=== PATIENT | female | born 1955 | race Caucasian/White ===

== ENCOUNTER → 2019-08-10 09:35 | Outpatient (BNVA) | payer BC, SELFPAY | PROVIDERS: Visit Provider Obstetrics & Gynecology | DX: I10 Essential (primary) hypertension (principal) | CPT/HCPCS: 80048 ==

== ENCOUNTER 2019-08-14 06:34 | Day surgery (SDC) | payer BC, SELFPAY ==
[2019-08-10 14:04] VITALS: BMI 34.9
[2019-08-14 06:51] VITALS: BP 174/79; PULSE 72; RESP 18; TEMP 36.3; O2SAT 98
[2019-08-14 07:01] LABS: Glucose Point of Care 170 mg/dL (70-110)
[2019-08-14] MEDS: sodium chloride 0.9% 1,000 ML 30 ML IV (07:01)
[2019-08-14] MEDS: ketorolac 30 mg/mL INJ IVP (07:01)
--- NOTE | 2019-08-14 07:02 | ANES.PREANE2 ---
Pre-Anesthetic Assessment Pre-Anesthetic Assessment: Height/Weight: Height 1.65 m Weight 95.254 kg Temp Pulse Resp BP Pulse Ox 97.3 F L 72 18 174/79 98 08/14/19 06:51 08/14/19 06:51 08/14/19 06:51 08/14/19 06:51 08/14/19 06:51 Preop Diagnosis: Postmenopausal bleeding, Endometrial polyp Proposed Procedure: Operation Date: 08/14/19 08:00 Proposed Procedures p Hysteroscopy with polypectomy Code: 35580/23920/N95.0/N84.0(Not Applicable) - Govind Sheffield MD s Dilation And Curettage (D&C)(Not Applicable) - Govind Sheffield MD Familial anesthetic complications: PONV, excess sleepiness afterwards Was Beta Poornima taken within 24 hours: N/A Last intake: Intake Last Liquid Date 08/13/19 Last Liquid Time 22:00 Last Solid Date 08/13/19 Last Solid Time 22:00 Social: Social History: No alcohol and No tobacco Exam: Pre-Anes Outpt Exam: alert, oriented x 3, clear to auscultation bilaterally and regular rate & rhythm Airway: Cervical ROM: WNL MP: 1 Additional comments: edentulous Pulmonary: Pulmonary: None reported CV/HEM: CV/HEM: CAD (stents - last one 13 years ago; last took plavix on ) and HTN : : None reported Hepatic: Hepatic: None reported GI: GI: None reported Metabolic: Metabolic: DM, Morbid obesity and Thyroid Musc/skel: Musc/skel: Fibromyalgia Neuropsych: Neuropsych: None reported Anesthetic Plan: ASA status: 2 Anesthesia: MAC Risk of > 500 ml blood loss (7ml/kg in children): No Meds/Allergies Current Medications: Current Medications Generic Name Dose Route Start Last Admin Trade Name Freq PRN Reason Stop Dose Admin Sodium Chloride 1,000 mls @ 30 ml s/hr 08/14/19 06:00 08/14/19 07:01 Sodium Chloride 0.9% IV 08/15/19 05:59 30 mls/hr .Q24H TEX Administration PFSH Anesthesia PFSH: Medical History Coronary artery disease Reports having 2 heart stents present. History of eye injury Hyperlipidemia Hypertension Post-surgical hypothyroidism Reports having thyroidectomy in 2014. 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 Type 2 diabetes mellitus Surgical History H/O breast biopsy (~1979) H/O section 1979 and 1986. H/O tubal ligation (~1986) History of arthroscopy of right shoulder (~2001) History of carpal tunnel release of both wrists Left - 2003. Right - 2004 History of cholecystectomy (~2004) History of heart artery stent (~2006) Dr. Barakat at [facility] in [facility] #2 History of thyroidectomy (~2014) In [facility] at [facility] History of tonsillectomy and adenoidectomy Family History Brother Hypertension Sister Hypertension Stroke Diabetes Sister No problems noted. Mother Heart disease Uterine cancer Grandmother Diabetes maternal Social History Smoking and tobacco status: never smoked Alcohol intake: current Alcohol intake frequency: holidays/special occasions only Alcohol type: hard liquor Substance/Drug Use: never Data Anesthesia Other Labs: Laboratory Results - last 48 hr 08/14/19 06:59 POC Glucose 170 Cardiac Studies: No Data to Display
--- NOTE | 2019-08-14 07:24 | P.HPUD_ITS ---
Surgery/Procedure H&P Update DATE OF PROCEDURE: August 14, 2019 DATE H&P PERFORMED: 08/10/19 H&P UPDATE INFORMATION: I have reviewed H&P completed within last 30 days, I have examined patient prior to procedure, No changes to prior documentation and H&P is in [facility] [place] date indicated PREOP DIAGNOSIS: Postmenopausal bleeding, Endometrial polyp PLANNED PROCEDURE: Operation Date: 08/14/19 08:00 Proposed Procedures p Hysteroscopy with polypectomy Code: 99206/48324/N95.0/N84.0(Not Applicable) - Govind Sheffield MD s Dilation And Curettage (D&C)(Not Applicable) - Govind Sheffield MD
--- NOTE | 2019-08-14 09:10 | P.OP_ITS ---
Operative Report Date of procedure: August 14, 2019 Pre-op Diagnosis: Postmenopausal bleeding, Endometrial polyp Post-op Diagnosis: Endometrial polyp, Postmenopausal bleeding Procedure Done: Hysteroscopy with polypectomy with MyoSure, Paracervical block Specimens removed/disposition: Endometrial polyps and endometrial lining Surgeon: Govind Sheffield Anesthesia: MAC and Other ( Paracervical block with 2% lidocaine with epinephrine) Estimated blood loss (mL): 5 IV fluids (mL): 500 Complications: None Findings: Small, approximately 5 mm in diameter, sessile polyp at the posterior fundal portion of the endometrial cavity. Within the anterior lower uterine segment was an approximately 1-1/2 cm diameter sessile polyp. Rest of the endometrial cavity was normal in appearance with a pale thin appearing lining. Both tubal ostia were visualized. Brief History: Patient is a 64-year-old white female 2, Para 2 who is postmenopausal. She presented to the office on 07/12/2019 with a complaint of bleeding. She reported having 2 dark spots in her underwear and March of this year. She denied any pain associated with it. She had a hysteroscopy performed in the office which revealed a sessile polyp along the posterior endometrial wall. Because of the polyp, recommendations were to proceed to the OR for removal. S he is presenting for surgery at this time. Procedure: The patient was taken to the operating room where IV sedation was started. She was prepped and draped in the usual sterile fashion in the dorsal supine position with legs in Vignesh style stirrups. Sequential compression boots had been placed prior to starting the case. Patient had voided just before coming to the operating room. Exam under anesthesia was performed and the patient was noted to have first- degree uterine prolapse with first to second-degree cystocele under anesthesia. A weighted speculum was placed in the vagina and the cervix was grasped with a single-tooth tenaculum. A paracervical block was performed with a total of 12 mL of 2% lidocaine with epinephrine used. The cervix was serially dilated until a operative hysteroscope could be passed. Crystalloid solution was used as a distention media. The endometrial cavity was inspected. At the posterior fundal portion of the endometrial cavity was an approximately 5 mm diameter sessile polyp. Along the anterior lower uterine segment was an approximately 1-1/2 cm sessile polyp. The rest of the endometrial cavity was pale, with thin appearing lining. Both tubal ostia were identified. Sharp curettage was performed with attempted removal of the polyps. This was unsuccessful. As result, decision was made to use the MyoSure device. Using the MyoSure device, the polyps were able to be completely removed. The tenaculum was removed and there was minimal bleeding from the tenaculum site. Patient tolerated the procedure well. Sponge and needle counts were correct. DRAINS: None POSTOPERATIVE STATUS: The patient was transferred to the recovery room in satisfactory condition DISPOSITION: Discharge to home when criteria was met. FOLLOWUP APPOINTMENT: Followup appointment had been scheduled on 08/30/2019 in my office. MEDICATIONS: She is to resume her usual home medications.
[2019-08-14 09:14] VITALS: BP 113/51; PULSE 81; RESP 18; TEMP 36.7; O2SAT 95
[2019-08-14 09:43] VITALS: BP 120/55; PULSE 73; RESP 18; O2SAT 97
== END 2019-08-14 09:47 | disposition home or self-care (01) ==
PROVIDERS: PCP Family Medicine; Visit Provider Obstetrics & Gynecology
PROC: (CPT 58120; 2019-08-14 08:00)
PROC: 0UDB8ZZ Extraction of Endometrium, Via Natural or Artificial Opening Endoscopic (ICD-10-PCS; CPT 58558; 2019-08-14 08:00)
DX: N95.0 Postmenopausal bleeding (principal); N84.0 Polyp of corpus uteri; I25.10 Atherosclerotic heart disease of native coronary artery without angina pectoris; Z95.5 Presence of coronary angioplasty implant and graft; I10 Essential (primary) hypertension; E11.9 Type 2 diabetes mellitus without complications; E66.01 Morbid (severe) obesity due to excess calories; Z68.34 Body mass index [BMI] 34.0-34.9, adult; M79.7 Fibromyalgia; E78.5 Hyperlipidemia, unspecified
CPT/HCPCS: 58558; 12345; 36416; 82962; 88305; 96374; J1885; J2001; J2405; J2704; J3010; J7030

== ENCOUNTER 2019-09-29 01:44 | Emergency (ER) | payer BC, SELFPAY ==
--- NOTE | 2019-09-29 01:48 | CTR_ITS ---
PROCEDURE INFORMATION: Exam: CT Head Without Contrast Exam date and time: 09/29/2019 2:41 AM Age: 64 years old Clinical indication: Dizziness TECHNIQUE: Imaging protocol: Computed tomography of the head without contrast. Radiation optimization: All CT scans at this facility use at least one of these dose optimization techniques: automated exposure control; mA and/or kV adjustment per patient size (includes targeted exams where dose is matched to clinical indication); or iterative reconstruction. COMPARISON: No relevant prior studies available. RADIATION DOSE METRICS: Total DLP (mGy-cm): 853.24 FINDINGS: Brain: No hemorrhage. No significant white matter disease. No edema. Ventricles: No hydrocephalus. Bones/joints: No acute fracture. Sinuses: Unremarkable. No acute sinusitis. Mastoid air cells: No significant mastoid effusion. Orbits: Postprocedural changes affect the left globe. Soft tissues: Unremarkable. CT/CT head wo con* [id number] IMPRESSION: No acute intracranial abnormality. Radiation Dose CTDIVOL = (mGy): DLP = 853.24 (mGy-cm)
[2019-09-29 01:49] VITALS: BP 161/77; PULSE 71; RESP 18; TEMP 37.1; O2SAT 93; BMI 36.6
--- NOTE | 2019-09-29 01:49 | ECG_ITS ---
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 Measurements Intervals [place] Rate: 66 P: 52 ME: 168 QRS: -47 QRSD: 98 T: 7 QT: 388 QTc: 408 Interpretive Statements SINUS RHYTHM LOW QRS VOLTAGE IN PRECORDIAL LEADS [QRS DEFLECTION < 1.0 mV IN CHEST LEADS] LEFT ANTERIOR FASCICULAR BLOCK [QRS AXIS <= -45, QR IN I, RS IN II] POSSIBLE ANTERIOR MYOCARDIAL INFARCTION , PROBABLY OLD [30 ms Q WAVE IN V3/V4, OR R < 0.2 mV IN V4] INTERPRETATION BASED ON A DEFAULT AGE OF 40 YEARS Compared to ECG 09/21/2017 17:59:34 No significant changes Electronically Signed On 09-29-2019 13:53:17 CDT by Marian Egan M.D. [id number]
[2019-09-29] MEDS: ondansetron 2 mg/ML SDV 2 mL 8 MG IVP (02:00)
[2019-09-29 02:03] VITALS: BP 163/82; PULSE 65; RESP 18; O2SAT 95
[2019-09-29 02:05] LABS: Basophils % 0.7 %; Eosinophils # 0.2 10^3/uL (0.0-0.8); Eosinophils % 3.5 %; Hematocrit 42.6 % (37.0-47.0); Lymphocytes # 2.6 10^3/uL (0.8-4.8); Lymphocytes % 45.3 %; Mean Corpuscular HGB Conc 32.9 g/dL (30.0-36.0); Mean Corpuscular Hemoglobin 30.2 pg (28.0-34.0); Mean Corpuscular Volume 91.8 fL (81-99); Mean Platelet Volume 11.5 fL (7.4-10.4); Monocytes # 0.4 10^3/uL (0.2-0.9); Neutrophils # 2.6 10^3/uL (1.8-7.7); Neutrophils % 44.3 %; Nucleated Red Blood Cells % 0 %; Platelet Count 220 10^3/cmm (130-400); Red Blood Count 4.64 10^6/uL (4.1-5.3); Red Cell Distribution Width 13.3 % (12.1-15.1); White Blood Count 5.8 10^3/uL (4.0-10.0)
[2019-09-29 02:34] LABS: Alanine Aminotransferase 14 U/L (0-33); Albumin Level 4.1 g/dL (3.5-5.2); Alkaline Phosphatase 104 IU/L (35-105); Anion Gap 13.6 (5-19); Aspartate Amino Transferase 15 U/L (0-32); Blood Urea Nitrogen 13 mg/dL (8-23); Calcium 9.9 mg/dL (8.5-10.5); Carbon Dioxide 28 mmol/L (22-29); Chloride 101 mmol/L (98-107); Creatinine Clr Calc Pharmacy 96.2479; Globulin 3.3 g/dL (1.3-4.6); Glomerular Filtration Rate 84.5 mL/min (90-130); Glucose 136 mg/dL (65-115); Osmolality Calculated 286 mOsm/kg (285-295); Potassium 3.6 mmol/L (3.5-5.1); Sodium 139 mmol/L (136-145); Total Bilirubin 0.4 mg/dL (0.15-1.2); Total Protein 7.4 g/dL (6.6-8.7)
[2019-09-29 02:36] LABS: Troponin(5th) Baseline 10 ng/L (0-10)
[2019-09-29 03:17] VITALS: BP 144/72; PULSE 64; RESP 20; O2SAT 93
--- NOTE | 2019-09-29 03:49 | ECG_ITS ---
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 Measurements Intervals [place] Rate: 66 P: 52 CO: 168 QRS: -47 QRSD: 98 T: 7 QT: 388 QTc: 408 Interpretive Statements SINUS RHYTHM LOW QRS VOLTAGE IN PRECORDIAL LEADS [QRS DEFLECTION < 1.0 mV IN CHEST LEADS] LEFT ANTERIOR FASCICULAR BLOCK [QRS AXIS <= -45, QR IN I, RS IN II] POSSIBLE ANTERIOR MYOCARDIAL INFARCTION , PROBABLY OLD [30 ms Q WAVE IN V3/V4, OR R < 0.2 mV IN V4] INTERPRETATION BASED ON A DEFAULT AGE OF 40 YEARS Compared to ECG 09/21/2017 17:59:34 No significant changes Electronically Signed On 09-29-2019 14:03:46 CDT by Marian Egan M.D. [id number] f
--- NOTE | 2019-09-29 04:08 | CTR_ITS ---
PROCEDURE INFORMATION: Exam: CT Angiography Head With Contrast Exam date and time: 09/29/2019 4:32 AM Age: 64 years old Clinical indication: Dizziness and giddiness; Prior surgery; Surgery type: Thyroid removed; Additional info: Dizzy TECHNIQUE: Imaging protocol: Computed tomography angiography of the head with intravenous contrast. 3D rendering: MIP and/or 3D reconstructed images were created by the technologist. Radiation optimization: All CT scans at this facility use at least one of these dose optimization techniques: automated exposure control; mA and/or kV adjustment per patient size (includes targeted exams where dose is matched to clinical indication); or iterative reconstruction. Contrast material: OMNI 350; Contrast volume: 95 ml; Contrast route: INTRAVENOUS (IV); COMPARISON: CT head wo con* [id number] 2019-09-29 02:31 RADIATION DOSE METRICS: Total DLP (mGy-cm): 2425.31 FINDINGS: Anterior cerebral arteries: No occlusion or significant stenosis. No aneurysm. Right internal carotid artery: Intracranial segment is patent with no significant stenosis or occlusion. No aneurysm. Right middle cerebral artery: No occlusion or significant stenosis. No aneurysm. Right posterior cerebral artery: Patent right MEDICINE TECH. Right vertebral artery: No occlusion or significant stenosis. No aneurysm. Left internal carotid artery: Intracranial segment is patent with no significant stenosis or occlusion. No aneurysm. Left middle cerebral artery: No occlusion or significant stenosis. No aneurysm. Left posterior cerebral artery: Tiny left posterior communicating artery with a tiny infundibulum at its origin. Left vertebral artery: No occlusion or significant stenosis. No aneurysm. Basilar artery: No occlusion or significant stenosis. No aneurysm. Dural sinuses/cerebral veins: The visualized deep and superficial dural venous sinuses and cortical veins are patent. HEAD: Orbits: Left globe scleral buckle. Evidence of previous ocular surgery with intraocular lens implants. IMPRESSION: No large vessel stenosis or occlusion. PROCEDURE INFORMATION: Exam: CT Angiography Neck With Contrast Exam date and time: 09/29/2019 4:32 AM Age: 64 years old Clinical indication: Dizziness and giddiness; Prior surgery; Surgery type: Thyroid removed; Additional info: Dizzy TECHNIQUE: Imaging protocol: Computed tomography angiography of the neck with intravenous contrast. 3D rendering: MIP and/or 3D reconstructed images were created by the technologist. Radiation optimization: All CT scans at this facility use at least one of these dose optimization techniques: automated exposure control; mA and/or kV adjustment per patient size (includes targeted exams where dose is matched to clinical indication); or iterative reconstruction. Contrast material: OMNI 350; Contrast volume: 95 ml; Contrast route: INTRAVENOUS (IV); COMPARISON: CT head wo con* [id number] 2019-09-29 02:31 RADIATION DOSE METRICS: Total DLP (mGy-cm): 2425.31 FINDINGS: Right common carotid artery: No stenosis. No dissection or occlusion. Right internal carotid artery: Mild atherosclerotic plaque in the carotid bulb and proximal right internal carotid artery with less than 50% stenosis by NASCET criteria. Right external carotid artery: No occlusion or stenosis of the origin. Right vertebral artery: No stenosis. No dissection or occlusion. Left common carotid artery: Mild atherosclerotic plaque in the predominately distal left common carotid artery and the bifurcation. Left internal carotid artery: Mild atherosclerotic plaque in the proximal left internal carotid artery and carotid bulb with less than 50% stenosis by NASCET criteria. Left external carotid artery: No occlusion or stenosis of the origin. Left vertebral artery: No stenosis. No dissection or occlusion. Trachea: Evidence of previous thyroidectomy with numerous clips abutting the upper trachea. Bones/joints: No acute fracture. Soft tissues: Normal. No significant soft tissue swelling. CT/CT angio headneck* [id number] IMPRESSION: 1. Mild bilateral proximal ICA atherosclerotic disease with less than 50% stenosis. 2. No acute abnormality. REFERENCES: NASCET CRITERIA. The degree of internal carotid artery stenosis is based on NASCET criteria. Normal is no stenosis. Mild is less than 50% stenosis. Moderate is 50-69% stenosis. Severe is 70% to 99% stenosis. Total occlusion is no detectable patent lumen. Radiation Dose CTDIVOL = (mGy): DLP = 2425.31~2425.31 (mGy-cm)
[2019-09-29] MEDS: LORazepam 2 mg/mL INJ 1 mL 0.5 MG IVP (04:48)
[2019-09-29] MEDS: iohexol 350 mg/mL 100 mL Btl IV (05:25)
[2019-09-29 05:59] VITALS: BP 128/57; PULSE 59; RESP 18; O2SAT 95
[2019-09-29 06:27] LABS: Troponin 5 2HR 10.99 ng/L (0-10); Troponin 5 2HR Delta 0.99 ABS# (0-10)
[2019-09-29 07:43] LABS: Add Urine Microscopic? NO
[2019-09-29 07:51] LABS: Bilirubin Urine Neg (NEGATIVE); Blood Urine Neg (Negative); Glucose Urine UA Norm (Normal); Ketones Urine Negative (Negative); Leukocyte Esterase Urine Negative (Negative); Nitrate Urine Negative (Negative); Protein Urine Neg (Negative); Specific Gravity, Urine 1.005 (1.005-1.030); Urine Appearance Clear (CLEAR); Urine Color Yellow (Yellow); Urobilinogen Urine Norm (Negative); pH Urine 6.5 (5-7)
--- NOTE | 2019-09-30 05:43 | ED_ITS ---
HPI - Dizziness General: Chief Complaint: Dizziness Stated Complaint: acute dizziness Time Seen by Provider: 09/29/19 02:05 History of Present Illness: HPI Narrative: 64-year-old female had had a couple of episodes of dizziness lately. She experienced extreme dizziness this morning. He says she always has ringing in her ears, and attributes this to diabetic neuropathy. Last night, she noticed the ringing to be worse, and to be more dizzy. She was quite dizzy on getting up at home, so much that she lost her balance. She is having trouble moving her head due to intense dizziness. She describes it as a vertiginous type of dizziness. MD elicited complaint: dizziness, difficulty walking and vertigo Onset (ago): hour(s) Timing: sudden onset Severity: moderate Description: room spinning History of similar symptoms: Yes Exacerbating factors: movement/ambulation Relieving factors: remaining still Associated symptoms: Reports nausea and tinnitus; Denies diaphoresis, ear pressure, headache(s), palpitations or vomiting Associated neuro symptoms: Deny confusion Review of Systems Const: Denies: diaphoresis Eyes: Denies: change in vision or blurry vision ENMT: Reports: tinnitus Card: Denies: palpitations Resp: Denies: dyspnea, productive cough, non-productive cough or wheezing GI: Reports: nausea; Denies: vomiting : Denies: dysuria, urinary frequency, urinary urgency or hematuria Musc: Denies: joint redness or joint warmth Skin/Breast: Denies: rash, pruritus or erythema Neuro: Denies: headache(s), dizziness, vertigo, confusion or seizure-like activity Psych: Denies: anxiety PFSH ED PFSH: Medical History (Updated 09/29/19 @ 06:30 by Earl Rosario DO) Coronary artery disease Reports having 2 heart stents present. History of eye injury History of hysteroscopy (08/14/19) Hysteroscopy with polypectomy with MyoSure with Dr. Sheffield at [facility] Hyperlipidemia Hypertension Post-surgical hypothyroidism Reports having thyroidectomy in 2014. 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 Type 2 diabetes mellitus Surgical History H/O breast biopsy (~1979) H/O section 1979 and 1986. H/O tubal ligation (~1986) History of arthroscopy of right shoulder (~2001) History of carpal tunnel release of both wrists Left - 2003. Right - 2005 History of cholecystectomy (~2004) History of heart artery stent (~2006) Dr. Barakat at [facility] in [facility] History of thyroidectomy (~2014) In [facility] at [facility] History of tonsillectomy and adenoidectomy Family History Brother Hypertension Sister Hypertension Stroke Diabetes Sister No problems noted. Mother Heart disease Uterine cancer Grandmother Diabetes maternal Social History Smoking and tobacco status: never smoked Alcohol intake: current Alcohol intake frequency: holidays/special occasions only Alcohol type: hard liquor Physical Exam Const: COMMON NORMALS: patient oriented x3 GENERAL APPEARANCE: well developed ORIENTATION/CONSCIOUSNESS: Yes oriented to person, Yes oriented to place and Yes oriented to time HENMT: COMMON NORMALS: normocephalic, external ears normal and Normal external nose present HEAD & SCALP: normocephalic FACE & SINUS: normal facial exam NOSE: Normal external nose present and No nasal discharge present EXTERNAL EAR: Yes external ears normal MOUTH: tongue normal Eye: COMMON NORMALS: Equal, round and reactive pupils present, EOMs intact bilaterally and conjunctivae normal EYELID: eyelids normal CONJUNCTIVA: Yes conjunctivae normal PUPIL: Yes Equal, round and reactive pupils present Neck/C-Spine: GENERAL: No tracheal deviation Chest: COMMONS NORMALS: normal inspection of the chest CHEST: No tenderness Resp: COMMON NORMALS: clear to auscultation bilaterally EFFORT & IN SPECTION: No tachypneic, No respiratory distress, No retractions, No uses accessory muscles and No tracheal deviation AUSCULTATION: clear to auscultation bilaterally, no rhonchi, no wheezes and lung sounds not diminished Cardio: COMMON NORMALS: regular rate and regular rhythm RATE: regular rate RHYTHM: regular rhythm HEART SOUNDS: no murmurs PERIPHERAL PULSES: radial pulses present GI: INSPECTION: No abdominal distension AUSCULTATION: No Hyperactive bowel sounds present and No Hypoactive bowel sounds present PALPATION: No Guarding due to palpation present (GI) and No Rigid due to palpation PERCUSSION: no dullness to percussion and no tympanic to percussion Neuro: COMMON NORMALS: patient oriented x3 and CN's II-XII intact bilaterally SENSORIUM/ORIENTATION: Yes oriented to person, Yes oriented to place and Yes oriented to time COORDINATION/BALANCE: [id number] test normal SPEECH: speech normal GAIT: Yes Normal gait present (Tested after all testing during johns walking test) SENSORY EXAM: Yes extremities (Intact) MOTOR EXAM: Pronator motor function not present COORDINATION: [id number] test normal PUPIL EXAM: Normal pupillary reactivity/response: bilateral Psych: COMMON NORMALS: mental status grossly normal Skin: COMMON NORMALS: no rashes or lesions noted GENERAL SKIN EXAM: no rashes or lesions noted Course Vital Signs: Vital signs: Vital Signs Temperature 98.7 F 09/29/19 01:49 Pulse Rate 59 L 09/29/19 05:59 Respiratory Rate 18 09/29/19 05:59 Blood Pressure 128/57 09/29/19 05:59 Pulse Oximetry 95 09/29/19 05:59 MDM - Dizziness MDM Narrative: Medical decision making narrative: Labs and EKG are benign. She has no focal deficits on neurological exam. CT of the head is negative. She is sent for CTA as vertebral artery occlusion versus dissection is a possibility. She does have a mild headache. This was negative as well. After administration of a low-dose of Ativan and Zofran, the patient was able to walk the halls without significant dizziness. She was mildly dizzy still. There was no vomiting or violent dizziness to indicate cerebral infarction. She was offered observation admission, but chose to go home. Lab Data: Labs: Lab Results 09/29/19 09/29/19 09/29/19 Range/Units 02:00 02:00 02:00 WBC 5.8 (4.0-10.0) 10^3/ uL RBC 4.64 (4.1-5.3) 10^6/u L Hgb 14.0 (11.5-15.3) g/dL Hct 42.6 (37.0-47.0) % MCV 91.8 (81-99) fL MCH 30.2 (28.0-34.0) pg MCHC 32.9 (30.0-36.0) g/dL RDW 13.3 (12.1-15.1) % Plt Count 220 (130-400) 10^3/c mm MPV 11.5 H (7.4-10.4) fL Neut % (Auto) 44.3 % Lymph % (Auto) 45.3 % [place] % (Auto) 6.0 % Eos % (Auto) 3.5 % Baso % (Auto) 0.7 % Neut # (Auto) 2.6 (1.8-7.7) 10^3/u L Lymph # (Auto) 2.6 (0.8-4.8) 10^3/u L [place] # (Auto) 0.4 (0.2-0.9) 10^3/u L Eos # (Auto) 0.2 (0.0-0.8) 10^3/u L Baso # (Auto) 0.0 (0.0-0.1) 10^3/u L Nucleated RBC % (a uto) 0 % Nucleated RBCs # 0.0 /100WBC Sodium 139 (136-145) mmol/L Potassium 3.6 (3.5-5.1) mmol/L Chloride 101 (98-107) mmol/L Carbon Dioxide 28 (22-29) mmol/L Anion Gap 13.6 (5-19) BUN 13 (8-23) mg/dL Creatinine 0.7 (0.5-0.9) mg/dL GFR Calculation 84.5 L (90-130) mL/min Glucose 136 H (65-115) mg/dL Calculated Osmolal ity 286 (285-295) mOsm/k g Calcium 9.9 (8.5-10.5) mg/dL Total Bilirubin 0.4 (0.15-1.2) mg/dL AST 15 (0-32) U/L ALT 14 (0-33) U/L Alkaline Phosphata se 104 (35-105) IU/L Troponin T Baselin e 10 (0-10) ng/L Troponin T 120 Min [place] (0-10) ng/L Delta Troponin T (0-10) ABS# Total Protein 7.4 (6.6-8.7) g/dL Albumin 4.1 (3.5-5.2) g/dL Globulin 3.3 (1.3-4.6) g/dL Urine Color (Yellow) Urine Appearance (CLEAR) Urine pH (5-7) Ur Specific Gravit y (1.005-1.030) Urine Protein (Negative) Urine Glucose (UA) (Normal) Urine Ketones (Negative) Urine Blood (Negative) Urine Nitrate (Negative) Urine Bilirubin (NEGATIVE) Urine Urobilinogen (Negative) mg/dL Ur Leukocyte [place] (Negative) 09/29/19 09/29/19 Range/Units 04:37 06:33 WBC (4.0-10.0) 10^3/ uL RBC (4.1-5.3) 10^6/u L Hgb (11.5-15.3) g/dL Hct (37.0-47.0) % MCV (81-99) fL MCH (28.0-34.0) pg MCHC (30.0-36.0) g/dL RDW (12.1-15.1) % Plt Count (130-400) 10^3/c mm MPV (7.4-10.4) fL Neut % (Auto) % Lymph % (Auto) % [place] % (Auto) % Eos % (Auto) % Baso % (Auto) % Neut # (Auto) (1.8-7.7) 10^3/u L Lymph # (Auto) (0.8-4.8) 10^3/u L [place] # (Auto) (0.2-0.9) 10^3/u L Eos # (Auto) (0.0-0.8) 10^3/u L Baso # (Auto) (0.0-0.1) 10^3/u L Nucleated RBC % (a uto) % Nucleated RBCs # /100WBC Sodium (136-145) mmol/L Potassium (3.5-5.1) mmol/L Chloride (98-107) mmol/L Carbon Dioxide (22-29) mmol/L Anion Gap (5-19) BUN (8-23) mg/dL Creatinine (0.5-0.9) mg/dL GFR Calculation (90-130) mL/min Glucose (65-115) mg/dL Calculated Osmolal ity (285-295) mOsm/k g Calcium (8.5-10.5) mg/dL Total Bilirubin (0.15-1.2) mg/dL AST (0-32) U/L ALT (0-33) U/L Alkaline Phosphata se (35-105) IU/L Troponin T Baselin e (0-10) ng/L Troponin T 120 Min [place] 10.99 H (0-10) ng/L Delta Troponin T 0.99 (0-10) ABS# Total Protein (6.6-8.7) g/dL Albumin (3.5-5.2) g/dL Globulin (1.3-4.6) g/dL Urine Color Yellow (Yellow) Urine Appearance Clear (CLEAR) Urine pH 6.5 (5-7) Ur Specific Gravit y 1.005 (1.005-1.030) Urine Protein Neg (Negative) Urine Glucose (UA) Norm (Normal) Urine Ketones Negative (Negative) Urine Blood Neg (Negative) Urine Nitrate Negative (Negative) Urine Bilirubin Neg (NEGATIVE) Urine Urobilinogen Norm (Negative) mg/dL Ur Leukocyte [place] Negative (Negative) Discharge Plan Discharge Patient Disposition: Home, Self-Care Clinical Impression: Benign paroxysmal positional vertigo Qualifiers: Laterality: unspecified laterality Qualified Code(s): H81.10 - Benign paroxysmal vertigo, unspecified ear Condition: Stable Prescriptions: New meclizine 25 mg tablet 25 mg PO TID PRN (Reason: dizziness) Qty: 60 RF: 0 No Action levothyroxine 125 mcg capsule 125 mcg PO DAILY RF: 0 rosuvastatin 20 mg tablet 20 mg PO DAILY RF: 0 metoprolol succinate 50 mg tablet extended release 24 hr 50 mg PO DAILY RF: 0 Humalog U-100 Insulin 100 unit/mL cartridge 70 unit SUBCUT DAILY RF: 0 clopidogrel [Plavix] 75 mg tablet 75 mg PO DAILY RF: 0 aspirin 325 mg tablet 325 mg PO DAILY RF: 0 irbesartan 150 mg tablet 150 mg PO DAILY RF: 0 tramadol 50 mg Tablet 50 - 100 mg PO Q6H PRN (Reason: Moderate To Severe Pain) Qty: 10 RF: 0 Discharge Orders: Discharge Order (Routine); Ordered 09/29/19 Ordered By: Earl Rosario Referrals: Evelina Araujo MD [Primary Care Provider] - 4-7 days Discharge Diet: Advance as tolerated Discharge Activity: Increase activity as tolerated Patient Instructions: Benign Paroxysmal Positional Vertigo (ED), Dizziness (ED) Activity Restrictions/Additional Instructions: Return to the ER for worsening dizziness, weakness, mental status changes, trouble with speech, or new visual problems. Return for any other concerning symptoms. Discharge Date/Time: 09/29/19 07:25 Coding Level of Care Code ED [facility] for Liban Schilling
== END 2019-09-29 07:25 | disposition home or self-care (01) ==
PROVIDERS: Nurse Practitioner Family; Emergency Provider Emergency Medicine; PCP Family Medicine
DX: H81.10 Benign paroxysmal vertigo, unspecified ear (principal); Z79.82 Long term (current) use of aspirin; Z79.02 Long term (current) use of antithrombotics/antiplatelets; Z79.4 Long term (current) use of insulin; I25.10 Atherosclerotic heart disease of native coronary artery without angina pectoris; E78.5 Hyperlipidemia, unspecified; I10 Essential (primary) hypertension; E11.9 Type 2 diabetes mellitus without complications
CPT/HCPCS: 12345; 70450; 70496; 70498; 80053; 81003; 84484; 85025; 93005; 96374; 96375; 99283; 99284; J2060; J2405; Q9967

== ENCOUNTER 2023-07-18 14:50 | Outpatient (RCR) | payer MEDICARE, SELFPAY | END 2023-07-26 23:59 | disposition home or self-care (01) | LOC: SPT 14:50 | PROVIDERS: PCP Family Medicine; Visit Provider Family Medicine | DX: M54.9 Dorsalgia, unspecified (principal) | CPT/HCPCS: 97110; 97161; G0283 ==

== ENCOUNTER 2023-07-27 06:00 | Outpatient (RCR) | payer MEDICARE, SELFPAY | END 2023-08-26 23:59 | disposition home or self-care (01) | LOC: SPT 06:00 | PROVIDERS: PCP Family Medicine; Visit Provider Family Medicine | DX: M54.9 Dorsalgia, unspecified (principal) | CPT/HCPCS: 97110; G0283 ==

== ENCOUNTER 2023-08-27 06:00 | Outpatient (RCR) | payer MEDICARE, SELFPAY | END 2023-09-25 23:59 | disposition home or self-care (01) | LOC: SPT 06:00 | PROVIDERS: PCP Family Medicine; Visit Provider Family Medicine | DX: M54.9 Dorsalgia, unspecified (principal) | CPT/HCPCS: 97110 ==

== ENCOUNTER → 2023-12-08 08:41 | Outpatient (BNVA) | payer MEDICARE, SELFPAY | PROVIDERS: PCP Family Medicine; Visit Provider Nurse Practitioner Family | DX: R35.0 Frequency of micturition (principal) | CPT/HCPCS: 81000 ==